=== PATIENT | female | born 1970 | race Hispanic/Latino ===

== ENCOUNTER 2020-11-02 23:39 | Emergency (ER) | payer SELFPAY ==
[2020-11-03 00:08] LABS: Bilirubin Negative (Negative); Blood, Urine Small (Negative); Clarity Clear (Clear); Glucose, Urine (Dipstick) Negative (Negative); Ketone, Urine Negative (Negative); Leukocyte Negative (Negative); Nitrite Negative (Negative); Protein, Urine (Dipstick) Negative (Neg-Trace); Urobilinogen 0.2 mg/dL (Less than 2)
[2020-11-03 00:09] LABS: RBC/HPF 0-3 HPF (0-3); Squamous Epithelial 0-3 HPF (0-3); WBC/HPF None Seen HPF (0-3)
[2020-11-03 00:10] LABS: Bacteria/HPF Rare-Few HPF (None Seen)
[2020-11-03 00:19] LABS: Pregnancy Test - Urine (BHCG) Negative (Negative); Pregu Control Background? CLEAR/WHITE (CLR/WHITE); Pregu Control Bar Appear? YES (CONTROL BAR)
[2020-11-03 00:30] LABS: #Basophils 0.1 thou/uL (0.0-0.2); #Eosinphils 0.5 thou/uL (0.0-0.7); #Lymphocytes 4.4 thou/uL (1.20-3.40); #Monocytes 0.7 thou/uL (0.11-0.59); #Neutrophils 7.7 thou/uL (1.40-6.50); %Basophils 0.9 % (0.0-1.0); %Eosinophils 3.7 % (0.0-10.0); %Lymphocytes 32.8 % (21.0-51.0); %Monocytes 5.2 % (0.0-10.0); %Neutrophils 57.5 % (42.0-75.0); Hemoglobin 12.6 g/dL (12.0-16.0); Mean Corpuscular Hemoglobin 29.9 pg (27.0-31.0); Mean Corpuscular Volume 93.6 fL (78.0-98.0); Platelet Count 284 thou/uL (130-400); White Blood Cell (WBC) Count 13.4 thou/uL (4.8-10.8)
[2020-11-03 00:43] LABS: Anion Gap 15 mmol/L (10-20); BUN (Urea Nitrogen) 15 mg/dL (7.0-18.7); Calc. Creatinine Clearance 0 mL/min (70-130); Calcium 8.4 mg/dL (7.8-10.44); Carbon Dioxide 18 mmol/L (22-29); Chloride 107 mmol/L (98-107); Glucose 104 mg/dL (70-105); Sodium 135 mmol/L (136-145)
[2020-11-03 00:44] LABS: Potassium 4.9 mmol/L (3.5-5.1)
--- NOTE | 2020-11-03 08:05 | CT ---
PRELIMINARY REPORT/[facility]/EMERGENCY AFTER HOURS PROCEDURE: EXAM: CT Abdomen and Pelvis Without Intravenous Contrast CLINICAL HISTORY: PT C/O "I HAVE A LOT OF ABDOMINAL PAIN AND LOWER BACK PAIN." X 3 DAYS. WENT AWAY A LITTLE BIT THEN CAME BACK. "I WAS TAKING TYLENOL AND IT GOES AWAY AND THEN COMES BACK." REPORTS PEEIN G MORE OFTEN THAN NORMAL. TECHNIQUE: Axial computed tomography images of the abdomen and pelvis without intravenous contrast. CONTRAST: None. COMPARISON: None provided. FINDINGS: LUNG BASES: No basilar airspace consolidation or pleural effusion. LIVER: Unremarkable. GALLBLADDER AND BILE DUCTS: There are stones identified within the gallbladder. No dilatation of the biliary ductal system.. PANCREAS: Unremarkable. SPLEEN: Unremarkable. ADRENAL GLANDS: Unremarkable. KIDNEYS, URETERS, AND BLADDER: Unremarkable. No hydronephrosis or nephrolithiasis. No ureteral or norbert dder calculi. STOMACH AND BOWEL: There is no evidence of obstruction. There is a large ventral hernia cavity conta ining a large amount of mesenteric fat in multiple loops of nondilated bowel.. APPENDIX: No CT evidence for appendicitis. The appendix is normal. PERITONEUM: No free fluid. No free air. LYMPH NODES: No lymphadenopathy. REPRODUCTIVE: Unremarkable as visualized. VASCULATURE: No aortic aneurysm. ABDOMINAL WALL AND SOFT TISSUES: Unremarkable. BONES: No fracture or suspicious osseous abnormality. IMPRESSION: There is no evidence of intestinal or urinary tract obstruction. There is a large ventral hernia cavity with a large amount of mesenteric fat in multiple loops of nondilated bowel within the cavity. Cholelithiasis. ELECTRONICALLY SIGNED BY: Luli Doshi DO Nov 03, 2020 12:57:46 AM [facility] FINAL REPORT CT ABDOMEN AND PELVIS WITHOUT CONTRAST: I agree with the preliminary report given by Dr. Luli Doshi of [facility]. POS: [facility]
== END 2020-11-03 01:55 | disposition home or self-care (01) ==
LOC: NAV ERS 23:39
DX: D72.829 Elevated white blood cell count, unspecified (principal); K43.9 Ventral hernia without obstruction or gangrene
CPT/HCPCS: 74176; 80048; 81003; 81015; 81025; 85025; 87480; 87491; 87510; 87591; 87660; 99284